=== PATIENT | male | born 1970 | race Caucasian/White ===

== ENCOUNTER 2023-11-26 14:19 | Emergency (ER) | payer OTHER, SELFPAY ==
[2023-11-26 14:24] VITALS: BP 166/94; PULSE 76; RESP 12; TEMP 37.1; O2SAT 97
--- NOTE | 2023-11-26 14:45 | DI.RAD_ITS ---
Exam(s) XR ELBOW LT COMPLETE EXAM: XR ELBOW LT COMPLETE CLINICAL HISTORY: lifting injury, lateral pain. TECHNIQUE: 2D digital imaging was performed. Three views. COMPARISON: No exams were available for comparison FINDINGS: BONES: No acute fracture is present. No bony destructive lesion is seen. JOINTS: The elbow is normally aligned. No joint effusion is seen. SOFT TISSUE: Normal. IMPRESSION: Unremarkable radiographs of the left elbow. DATA REPOSITORY: RADIATION DOSE DELIVERED:
--- NOTE | 2023-11-26 14:53 | ED.GENADUL_ITS ---
Discharge Plan Disposition Patient Disposition: Home Condition: Good Discharge Details Clinical Impression: Epicondylitis, lateral, Elbow pain Primary Care Provider: Les Caballero ED Provider: Jenn Denis Home Meds and New Rx's Prescriptions: No Action No Known Home Meds Discharge Instructions Instructions: Tennis Elbow (ED) Additional Instructions: X-rays reassuring here today. No evidence of fracture or dislocation. Please encourage rest, ice, elevation. Tylenol and ibuprofen as needed for discomfort. Please call your orthopedic provider to schedule follow-up appointment. Referral will be sent. Please use your previous elbow bracing to help with discomfort and immobilization during the healing process. Please avoid any heavy lifting or strenuous activity. If you develop any new or worsening symptoms please seek care urgently once again. Stand Alone Forms: Work Release HPI General Date/Time Provider Initiated Documentation: 11/26/23 14:29 . Limitations to Documentation: no limitations . Information obtained by: patient and RN notes reviewed . History of Present Illness 53 year old M presents to the emergency department with the chief complaint of left elbow pain, described as moderate and similar to prior episodes (had prior lifting injury), with intensity rated at 7. Quality is described as burning and aching, and is localized to the left and upper extremity. Patient extremity. Patient started experiencing this hour(s) and it has been constant. Immobilization improves symptom(s), Movement worsens symptoms . Patient notes no other symptoms.. Related Data Home Medications Medication Instructions Recorded Confirmed Unknown [No Known Home Meds] 11/26/23 11/26/23 Allergies Allergy/AdvReac Type Severity Reaction Status Date / Time prochlorperazine Allergy Severe Anaphylaxis Verified 11/26/23 14:30 [From Compazine] fentanyl AdvReac Intermediate Skin Rash Verified 11/26/23 14:30 Sulfa (Sulfonamide AdvReac Intermediate Headache Verified 11/26/23 14:30 Antibiotics) General Stated Complaint: Orthopedic DEDRA: 4 Review of Systems Constitutional Constitutional: Reports as per HPI, Denies fever(s), Denies headache(s) and Denies weakness ENT Ears, Nose, Mouth, and Throat: Denies headache(s) Cardiovascular Cardiovascular: Reports as per HPI Respiratory Respiratory: Reports as per HPI and Denies cough Musculoskeletal Musculoskeletal: Reports as per HPI and Denies tingling Integumentary/Breasts Skin/Breast: Reports as per HPI, Denies rash and Denies wounds Neurologic Neurologic: Reports as per HPI, Denies headache(s), Denies tingling, Denies paresthesias and Denies weakness Exam Const General: cooperative, healthy appearing, comfortable, no acute distress, well developed and well groomed Nutritional Appearance: average body habitus and well nourished Orientation: alert and awake Resp Effort & Inspection: normal respiratory effort, able to speak in complete sentences and no respiratory distress Cardio Rate: regular rate Rhythm: regular rhythm Skin General skin exam: no rashes or lesions noted Lesions: no lesions Rashes: no rashes Trauma: no lacerations or abrasions Neuro General: patient alert and patient awake Cognition: normal cognition Speech: speech normal Gait: normal gait Motor: muscle tone normal throughout Sensory Exam: no sensory deficits noted Extrem Elbow/forearm/wrist images: 2 1. Area of discomfort extends over the lateral epicondyles posteriorly to just proximal to the olecranon. No pain over the olecranon. Patient has full range of motion but pain with extremes of both. 2+ distal pulses. Sensation is intact. 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 Forage motion of the wrist and fingers. No pain with palpation in the shoulder. No bicipital tenderness, he is able to flex and extend against resistance. Good strength with supination and pronation although significant pain with supination against resistance over the lateral epicondyles. No appreciable swelling or deformity. Psych Appearance: grossly normal and well kempt Mental Status: mental status grossly normal Speech and Movement: speech and movement normal Course Vital Signs Vital signs: Vital Signs Temperature 37.1 C 11/26/23 14:24 Pulse 76 11/26/23 14:24 Respiratory Rate 12 11/26/23 14:24 Blood Pressure 166/94 H 11/26/23 14:24 Pulse Oximetry 97 11/26/23 14:24 Temperature 37.1 C 11/26/23 14:24 Pulse 76 11/26/23 14:24 Respiratory Rate 12 11/26/23 14:24 Respiratory Effort Normal, Non-Labored 11/26/23 14:28 Blood Pressure 166/94 H 11/26/23 14:24 Blood Pressure Position Sitting 11/26/23 14:24 Pulse Oximetry 97 11/26/23 14:24 Oxygen Delivery Method Room Air 11/26/23 14:24 Oxygen Flow Rate 0 11/26/23 14:24 Pain Level 7 11/26/23 14:24 Medical Decision Making Patient is a pleasant 53-year-old [id number] male presenting today with chief complaint of left elbow pain. He reports that prior to coming in, he was unloading equipment at work. States that he was dropping off siding for house as well as a door. He had been advised that somebody would be able to assist him with carrying these heavy objects however, appropriate assistance was not available. He reports that he then ended up lifting 12 foot long sections of siding as well as a heavy external door alone. He reports that he had onset of significant discomfort in the left elbow. This is now been limiting his ADLs. He reports a remote history of injury to this with partial tearing of the muscle. However, no recent discomfort with this. States that he was seen by orthopedics at that time and received injection with good success. On exam, patient appears nontoxic. Resting comfortably no acute distress. Exam the left upper extremity shows her to be neurovascularly intact. 2+ distal pulses. Full range of motion of the elbow, wrist, hand. No pain with palpation or movement of the shoulder. Biceps is palpated to be intact in both proximally and distally. Full range of motion of the wrist although extension does cause pain in the forearm and elbow. Pain is maximal over the lateral epicondyle and just proximal to this. No appreciable swelling, evidence of trauma or deformity. He also has pain over the triceps insertion area posteriorly but no pain directly over the olecranon. Significant pain with supination against resistance. Considered recurrent tearing or repeat injury. Will obtain x-ray to evaluate for any potential bony abnormalities. Also considered lateral epicondylitis. Patient does have bracing at home with likely be of benefit. He does have orthopedic near home that he would like to follow-up with assuming that will be necessary after this visit. FINDINGS: BONES: No acute fracture is present. No bony destructive lesion is seen. JOINTS: The elbow is normally aligned. No joint effusion is seen. SOFT TISSUE: Normal. IMPRESSION: Unremarkable radiographs of the left elbow. Discussed these findings with the patient. Encouraged rest, ice, elevation. Tylenol and ibuprofen as needed for discomfort. Work note was given to the patient. He will have the Workmen's Comp. paperwork completed. He has better bracing at home which is more appropriate than what I can provide here in the emergency department at this time. He will follow-up with orthopedics. Referral will be placed. Return precautions discussed. All questions and concerns were addressed and he is in agreement this plan Quality:SDOH Health Related Social Needs: 2 No Data to Display PFSH All Active Problems (Updated 11/26/23 @ 15:47 by DIONNA Zavala) Elbow pain (Acute) Epicondylitis, lateral (Acute) Social History Smoking/Tobacco Use Status: Never Smoking risk assessment performed?: Yes Alcohol Intake: never Drug use: Never Substance use type: does not use Housing: house Do you feel safe at home: Yes Do you feel safe in your relationship?: Yes
[2023-11-26] MEDS: Acetaminophen 325 MG TAB 650 MG PO (14:59)
[2023-11-26] MEDS: Ibuprofen 600 MG TAB PO (14:59)
[2023-11-26 15:55] VITALS: BP 136/95; PULSE 69; RESP 18; O2SAT 98
== END 2023-11-26 15:56 | disposition home or self-care (01) ==
LOC: ER 16:23
PROVIDERS: Emergency Provider Physician Assistant; PCP Internal Medicine
DX: M77.12 Lateral epicondylitis, left elbow (principal)
CPT/HCPCS: 99283; 73080